=== PATIENT | male | born 1955 | race Caucasian/White ===

== ENCOUNTER → 2017-03-04 | Outpatient (CLI) | payer MEDICARE, MEDICAID ==
[~2017-03-04] MED LIST: ALFU10TA2 PO; IMIT100T PO; NEUR300C PO; OMEP40CA2 PO
--- NOTE | 2017-03-04 09:05 | REP ---
TWO VIEW CHEST: COMPARISON: 12/23/2015. Once again there are mild chronic fibrotic changes in the lung bases and mild hyperinflation. There is no acute infiltrate. The heart is normal in size. Mediastinal silhouette is unremarkable and unchanged. There are minor degenerative changes of the spine. IMPRESSION: Stable exam with no evidence of acute pulmonary disease. Signed by Giacomo Tavares MD 03/04/2017 09:41 A
[2017-03-04 09:54] LABS: BASO # 0.1 K/mm3 (0.0-0.2); BASO % 1.2 % (0.0-1.0); EOS # 0.3 K/mm3 (0.0-0.50); EOS % 4.4 % (0.0-3.0); LYMPH # 1.4 K/mm3 (1.5-4.5); LYMPH % 19.7 % (24.0-44.0); MEAN CORPUSCULAR HEMOGLOBIN 31.5 pg (27.0-33.0); MEAN CORPUSCULAR HGB CONC 32.8 g/dl (32.0-36.5); MEAN CORPUSCULAR VOLUME 96.2 fl (80.0-96.0); MONO # 0.5 K/mm3 (0.0-0.8); MONO % 6.7 % (0.0-5.0); NEUTROPHILS # 4.4 K/mm3 (1.8-7.7); NEUTROPHILS % 66.6 % (36.0-66.0); RED CELL DISTRIBUTION WIDTH 12.8 % (11.5-14.5); WHITE BLOOD COUNT 6.7 K/mm3 (4.0-10.0)
[2017-03-04 10:14] LABS: ALBUMIN/GLOBULIN RATIO 1.54 (1.00-1.93); ALKALINE PHOSPHATASE 75 U/L (45-117); ALT/SGPT 19 U/L (12-78); ANION GAP 3 MEQ/L (8-16); AST/SGOT 16 U/L (15-37); BLOOD UREA NITROGEN 11 MG/DL (7-18); CALCIUM LEVEL 9.1 MG/DL (8.5-10.1); CARBON DIOXIDE LEVEL 31 MEQ/L (21-32); CHLORIDE LEVEL 108 MEQ/L (98-107); CHOLESTEROL LEVEL 149 MG/DL (<200); CREATININE FOR GFR 1.03 MG/DL (0.70-1.30); GLOMERULAR FILTRATION RATE > 60.0 (>56); GLUCOSE, FASTING 108 MG/DL (70-105); POTASSIUM SERUM 4.4 MEQ/L (3.5-5.1); SODIUM LEVEL 142 MEQ/L (136-145); TOTAL PROTEIN 6.6 GM/DL (6.4-8.2); TRIGLYCERIDES LEVEL 47 MG/DL (<150)
== END ==
LOC: M WUC 08:30
PROVIDERS: ATTEND Physician Assistant Medical
DX: J44.9 Chronic obstructive pulmonary disease, unspecified (principal); E78.2 Mixed hyperlipidemia; E55.9 Vitamin D deficiency, unspecified

== ENCOUNTER 2017-06-14 20:34 | Emergency (ER) | payer MEDICARE, MEDICAID ==
[~2017-06-14] VITALS: Ht 180.3 cm; Wt 62.0 kg
[2017-06-14 20:45] VITALS: BP 167/81
[2017-06-14] MEDS ORDERED: ALBU17IN (20:49)
[2017-06-14] MEDS ORDERED: BREO1INH (20:49)
[2017-06-14] MEDS ORDERED: NAPR500T3 PO (22:33)
[2017-06-14] MEDS ORDERED: TYLE325T5 PO (22:33)
[2017-06-14] MEDS: KETOROLAC 60 MG/2 ML VIAL (J1885) IM ONE (22:38)
--- NOTE | 2017-06-15 07:24 | REP ---
Left wrist four views : There is no fracture or dislocation. Mineralization and joint spaces are normal. There are no calcifications or foreign bodies. Impression: Negative left wrist . Signed by Giacomo Vasquez MD 06/15/2017 07:16 A
== END 2017-06-14 22:53 | disposition home or self-care (01) ==
LOC: M ED 20:34
DX: S63.501A Unspecified sprain of right wrist, initial encounter (principal); X50.0XXA Overexertion from strenuous movement or load, initial encounter; Y92.9 Unspecified place or not applicable; Y93.89 Activity, other specified; Y99.8 Other external cause status; J44.9 Chronic obstructive pulmonary disease, unspecified; K21.9 Gastro-esophageal reflux disease without esophagitis; R51 Headache; Z90.5 Acquired absence of kidney; Z79.51 Long term (current) use of inhaled steroids; Z79.899 Other long term (current) drug therapy; Z91.040 Latex allergy status
CPT/HCPCS: 73110; 96372; 99283; J1885

== ENCOUNTER → 2017-08-05 | Outpatient (CLI) | payer MEDICARE, MEDICAID ==
[~2017-08-05] MED LIST changes: +ALBU17IN; +BREO1INH; +NAPR500T3 PO; +TYLE325T5 PO
[2017-08-05 12:54] LABS: BASO # 0.1 K/mm3 (0.0-0.2); BASO % 1.1 % (0.0-1.0); EOS # 0.3 K/mm3 (0.0-0.50); LYMPH # 1.6 K/mm3 (1.5-4.5); LYMPH % 25.3 % (24.0-44.0); MEAN CORPUSCULAR HEMOGLOBIN 32.6 pg (27.0-33.0); MEAN CORPUSCULAR HGB CONC 33.6 g/dl (32.0-36.5); MONO # 0.3 K/mm3 (0.0-0.8); MONO % 5.5 % (0.0-5.0); NEUTROPHILS # 3.8 K/mm3 (1.8-7.7); NEUTROPHILS % 61.1 % (36.0-66.0); RED CELL DISTRIBUTION WIDTH 12.7 % (11.5-14.5); WHITE BLOOD COUNT 6.2 K/mm3 (4.0-10.0)
[2017-08-05 13:02] LABS: ALBUMIN 4.1 GM/DL (3.2-5.2); ALBUMIN/GLOBULIN RATIO 1.37 (1.00-1.93); ALKALINE PHOSPHATASE 70 U/L (45-117); ALT/SGPT 20 U/L (12-78); ANION GAP 5 MEQ/L (8-16); AST/SGOT 17 U/L (15-37); BILIRUBIN,TOTAL 0.8 MG/DL (0.2-1.0); BLOOD UREA NITROGEN 15 MG/DL (7-18); CALCIUM LEVEL 9.3 MG/DL (8.5-10.1); CARBON DIOXIDE LEVEL 32 MEQ/L (21-32); CHLORIDE LEVEL 107 MEQ/L (98-107); CHOLESTEROL LEVEL 162 MG/DL (<200); CREATININE FOR GFR 1.14 MG/DL (0.70-1.30); GLOMERULAR FILTRATION RATE > 60.0 (>56); GLUCOSE, FASTING 105 MG/DL (70-105); POTASSIUM SERUM 4.4 MEQ/L (3.5-5.1); SODIUM LEVEL 144 MEQ/L (136-145); TOTAL PROTEIN 7.1 GM/DL (6.4-8.2); TRIGLYCERIDES LEVEL 53 MG/DL (<150)
== END ==
LOC: M WUC 08:53
PROVIDERS: ATTEND Physician Assistant Medical
DX: E78.2 Mixed hyperlipidemia (principal); E55.9 Vitamin D deficiency, unspecified

== ENCOUNTER → 2017-09-10 | Outpatient (REF) | payer MEDICARE, MEDICAID | LOC: M SMT 13:00 | PROVIDERS: ATTEND Nurse Practitioner Women's Health | DX: N40.1 Benign prostatic hyperplasia with lower urinary tract symptoms (principal) ==

== ENCOUNTER → 2017-11-19 | Outpatient (CLI) | payer MEDICARE, MEDICAID ==
[2017-11-19 14:16] LABS: ANION GAP 4 MEQ/L (8-16); BLOOD UREA NITROGEN 14 MG/DL (7-18); CALCIUM LEVEL 8.9 MG/DL (8.8-10.2); CARBON DIOXIDE LEVEL 32 MEQ/L (21-32); CHLORIDE LEVEL 109 MEQ/L (98-107); CREATININE FOR GFR 1.09 MG/DL (0.70-1.30); GLOMERULAR FILTRATION RATE > 60.0 (>49); GLUCOSE, FASTING 112 MG/DL (80-110); POTASSIUM SERUM 4.3 MEQ/L (3.5-5.1); SODIUM LEVEL 145 MEQ/L (136-145)
== END ==
LOC: M SMT 09:31
PROVIDERS: ATTEND Nurse Practitioner Women's Health
DX: Z08 Encounter for follow-up examination after completed treatment for malignant neoplasm (principal); Z85.828 Personal history of other malignant neoplasm of skin

== ENCOUNTER → 2017-11-26 | Outpatient (CLI) | payer MEDICARE, MEDICAID ==
[~2017-11-26] MED LIST changes: +ISOVUE-370 76% 100ML VIAL (Q9967) As Ordered ONE
--- NOTE | 2017-11-26 10:40 | REP ---
Clinical: History of renal cell carcinoma for followup. Comparison: 07/12/2016. Technique: Axial precontrast, contrast enhanced, and delayed images of the abdomen and pelvis using 100 ml Isovue 370 intravenous contrast material with coronal and sagittal re-formations. Findings: Liver demonstrates few scattered stable hypodensities compatible with cysts measuring up to 10 mm diameter as well as stable hemangioma along the left lateral tip of the liver measuring approximately 2.5 cm diameter. Spleen, gallbladder, bilateral adrenal glands are normal. The left kidney demonstrates compensatory enlargement along with stable simple cysts measuring up to 4.9 cm diameter and few nonobstructing renal calculi measuring up to 9 mm. The patient is status post right nephrectomy without recurrence or mass lesion in the right renal fossa. Evidence for chronic pancreatitis with scattered parenchymal calcifications through the body/head/uncinate process. The enteric system is without obstruction or acute inflammatory process. Evaluation of the pelvis demonstrates normal bladder and enlarged prostate gland. No ascites. No obvious adenopathy. Atherosclerotic changes of the aorta and vasculature noted. Musculoskeletal structures demonstrate age-related changes without focal osseous abnormality. Lung bases are clear. Impression: 1. No acute abdominopelvic pathology appreciated. Specifically, with relation to the prior renal cell carcinoma, no recurrence, adenopathy or metastatic disease is appreciated. 2. Chronic stable findings include hepatic cysts and hemangioma as well as left renal cysts and nonobstructing calculi. Sequelae of chronic pancreatitis again noted. 3. Enlarged prostate gland. Signed by Connor Branch MD 11/26/2017 10:31 A
== END ==
LOC: M RAD 09:54
PROVIDERS: ATTEND Nurse Practitioner Women's Health
DX: Z08 Encounter for follow-up examination after completed treatment for malignant neoplasm (principal); Z85.528 Personal history of other malignant neoplasm of kidney; N28.1 Cyst of kidney, acquired
CPT/HCPCS: 74178; Q9967

== ENCOUNTER → 2017-12-03 | Outpatient (REF) | payer MEDICARE, MEDICAID ==
[2017-12-03 20:23] LABS: APPEARANCE, URINE CLEAR (CLEAR); BACTERIA, URINE AUTO NEGATIVE (NEGATIVE); BILIRUBIN, URINE AUTO NEGATIVE (NEGATIVE); BLOOD, URINE BLOOD 2+ (NEGATIVE); COLOR, URINE YELLOW (YELLOW); GLUCOSE, URINE (UA) AUTO NEGATIVE (NEGATIVE); KETONE, URINE AUTO NEGATIVE (NEGATIVE); LEUKOCYTE ESTERASE, URINE AUTO NEGATIVE (NEGATIVE); NITRITE, URINE AUTO NEGATIVE (NEGATIVE); PROTEIN, URINE AUTO NEGATIVE (NEGATIVE); RBC, URINE AUTO TNTC /HPF (0-3); SPECIFIC GRAVITY URINE AUTO 1.017 (1.002-1.035); SQUAMOUS EPITHELIAL CELL UR AU 0 /HPF (0-6); WBC, URINE AUTO 1 /HPF (0-3)
== END ==
LOC: M SMT 17:11
DX: R31.29 Other microscopic hematuria (principal); Z12.5 Encounter for screening for malignant neoplasm of prostate
CPT/HCPCS: 81001

== ENCOUNTER → 2017-12-10 | Outpatient (CLI) | payer MEDICARE, MEDICAID | LOC: M WUC 10:22 | DX: Z12.5 Encounter for screening for malignant neoplasm of prostate (principal) | CPT/HCPCS: G0103 ==

== ENCOUNTER → 2017-12-22 | Outpatient (CLI) | payer MEDICARE, MEDICAID ==
[2017-12-22 12:09] LABS: HEMATOCRIT 43.2 % (42.0-52.0); HEMOGLOBIN 14.1 g/dl (14.0-18.0); MEAN CORPUSCULAR HEMOGLOBIN 31.8 pg (27.0-33.0); MEAN CORPUSCULAR HGB CONC 32.6 g/dl (32.0-36.5); MEAN CORPUSCULAR VOLUME 97.5 fl (80.0-96.0); PLATELET COUNT, AUTOMATED 205 10^3/uL (150-450); RED BLOOD COUNT 4.43 10^6/uL (4.30-6.10); RED CELL DISTRIBUTION WIDTH 13.2 % (11.5-14.5); WHITE BLOOD COUNT 7.1 10^3/uL (4.0-10.0)
[2017-12-22 12:21] LABS: INR 1.07
[2017-12-22 12:22] LABS: PARTIAL THROMBOPLASTIN TIME 37.8 SECONDS (26.8-37.9)
[2017-12-22 12:31] LABS: ANION GAP 1 MEQ/L (8-16); BLOOD UREA NITROGEN 18 MG/DL (7-18); CALCIUM LEVEL 8.7 MG/DL (8.8-10.2); CARBON DIOXIDE LEVEL 31 MEQ/L (21-32); CHLORIDE LEVEL 111 MEQ/L (98-107); CREATININE FOR GFR 0.99 MG/DL (0.70-1.30); GLOMERULAR FILTRATION RATE > 60.0 (>49); GLUCOSE, FASTING 91 MG/DL (70-100); POTASSIUM SERUM 4.7 MEQ/L (3.5-5.1); SODIUM LEVEL 143 MEQ/L (136-145)
== END ==
LOC: M LAB 11:24
DX: Z01.818 Encounter for other preprocedural examination (principal); R00.1 Bradycardia, unspecified; I44.0 Atrioventricular block, first degree; R31.29 Other microscopic hematuria
CPT/HCPCS: 71046

== ENCOUNTER 2017-12-23 10:05 | Day surgery (SDC) | payer MEDICARE, MEDICAID ==
[2017-12-23] MEDS: LR 1,000 ML IV (10:41)
[2017-12-23] MEDS ORDERED: PROPOFOL 200 MG/20 ML VIAL As Ordered ×2 (11:34)
[2017-12-23] MEDS ORDERED: fentaNYL 100 MCG/2 ML INJECTION (J3010) As Ordered ×2 (11:34→11:39)
[2017-12-23] MEDS ORDERED: ONDANSETRON 4MG/2ML VIAL (J2405) As Ordered (11:34)
[2017-12-23] MEDS ORDERED: MIDAZOLAM INJ 2 MG/2 ML VIAL (J2250) As Ordered (11:34)
[2017-12-23] MEDS ORDERED: LIDOCAINE 2% INJ 100 MG/5 ML SDV (FOR ANES.) As Ordered (11:34)
[2017-12-23] MEDS: LIDOCAINE 2% 5ML JELLY UROJET As Ordered (11:35)
[2017-12-23] MEDS: CONRAY-60 60% 50ML VIAL (Q9961) As Ordered (11:38)
[2017-12-23] MEDS ORDERED: fentaNYL 100 MCG/2 ML INJECTION (J3010) IV (12:30)
[2017-12-23] MEDS ORDERED: NORCO, ANEXSIA 5/325MG TABLET (HYDROcodone/ACETAMINOPHEN) PO (12:30)
[2017-12-23] MEDS ORDERED: LR 1,000 ML IV (12:30)
[2017-12-23] MEDS ORDERED: ONDANSETRON 4MG/2ML VIAL (J2405) IV (12:30)
== END 2017-12-23 13:20 | disposition home or self-care (01) ==
LOC: M SDC 10:05
DX: R31.29 Other microscopic hematuria (principal); F41.9 Anxiety disorder, unspecified; F32.9 Major depressive disorder, single episode, unspecified; N20.0 Calculus of kidney; N40.1 Benign prostatic hyperplasia with lower urinary tract symptoms; E55.9 Vitamin D deficiency, unspecified; D64.9 Anemia, unspecified; M54.9 Dorsalgia, unspecified; J44.9 Chronic obstructive pulmonary disease, unspecified; Z91.040 Latex allergy status; Z79.899 Other long term (current) drug therapy; Z85.528 Personal history of other malignant neoplasm of kidney; Z72.0 Tobacco use
CPT/HCPCS: 52005

== ENCOUNTER → 2018-06-01 | Outpatient (CLI) | payer MEDICARE, MEDICAID | LOC: M RAD 06:49 | DX: K86.2 Cyst of pancreas (principal); N28.1 Cyst of kidney, acquired | CPT/HCPCS: 76700 ==

== ENCOUNTER → 2018-06-05 | Outpatient (CLI) | payer MEDICARE, MEDICAID | LOC: M RAD 07:52 | DX: F17.210 Nicotine dependence, cigarettes, uncomplicated (principal) | CPT/HCPCS: G0297 ==

== ENCOUNTER → 2018-06-23 | Outpatient (CLI) | payer MEDICARE, MEDICAID ==
[2018-06-23 10:54] LABS: BASO # 0.1 10^3/uL (0.0-0.2); BASO % 1.4 % (0.0-1.0); EOS % 0.4 % (0.0-3.0); HEMATOCRIT 41.3 % (42.0-52.0); HEMOGLOBIN 13.9 g/dl (13.5-17.5); IMMATURE GRANULOCYTE % 0.1 % (0-3.0); LYMPH # 1.7 10^3/uL (1.5-4.5); LYMPH % 24.3 % (24.0-44.0); MEAN CORPUSCULAR HEMOGLOBIN 32.4 pg (27.0-33.0); MEAN CORPUSCULAR HGB CONC 33.7 g/dl (32.0-36.5); MEAN CORPUSCULAR VOLUME 96.3 fl (80.0-96.0); MONO # 0.5 10^3/uL (0.0-0.8); MONO % 7.5 % (0.0-5.0); NEUTROPHILS # 4.7 10^3/uL (1.8-7.7); NEUTROPHILS % 66.3 % (36.0-66.0); PLATELET COUNT, AUTOMATED 214 10^3/uL (150-450); RED BLOOD COUNT 4.29 10^6/uL (4.30-6.10); RED CELL DISTRIBUTION WIDTH 12.9 % (11.5-14.5); WHITE BLOOD COUNT 7.2 10^3/uL (4.0-10.0)
[2018-06-23 11:26] LABS: TOTAL 25(OH) VITAMIN D 41.1 NG/ML (30.0-100.0)
[2018-06-23 11:28] LABS: ALBUMIN 3.6 GM/DL (3.2-5.2); ALBUMIN/GLOBULIN RATIO 1.38 (1.00-1.93); ALKALINE PHOSPHATASE 51 U/L (45-117); ALT/SGPT 19 U/L (12-78); ANION GAP 5 MEQ/L (8-16); AST/SGOT 14 U/L (7-37); BILIRUBIN,TOTAL 0.7 MG/DL (0.2-1.0); BLOOD UREA NITROGEN 12 MG/DL (7-18); CALCIUM LEVEL 8.5 MG/DL (8.8-10.2); CARBON DIOXIDE LEVEL 30 MEQ/L (21-32); CHLORIDE LEVEL 108 MEQ/L (98-107); CHOLESTEROL LEVEL 148 MG/DL (<200); CHOLESTEROL RISK RATIO 3.363 (<5); CREATININE FOR GFR 0.91 MG/DL (0.70-1.30); GLOMERULAR FILTRATION RATE > 60.0 (>49); GLUCOSE, FASTING 93 MG/DL (70-100); HDL CHOLESTEROL 44 MG/DL (>40); LDL CHOLESTEROL 86.2 MG/DL (<100); NON-HDL-C 104 MG/DL; POTASSIUM SERUM 4.4 MEQ/L (3.5-5.1); SODIUM LEVEL 143 MEQ/L (136-145); TOTAL PROTEIN 6.2 GM/DL (6.4-8.2); TRIGLYCERIDES LEVEL 89 MG/DL (<150)
== END ==
LOC: M WUC 09:10
DX: E55.9 Vitamin D deficiency, unspecified (principal); F32.9 Major depressive disorder, single episode, unspecified; Z13.220 Encounter for screening for lipoid disorders
CPT/HCPCS: 84443

== ENCOUNTER → 2018-12-08 | Outpatient (REF) | payer MEDICARE, MEDICAID ==
[~2018-12-08] MED LIST changes: -ISOVUE-370 76% 100ML VIAL (Q9967) As Ordered ONE; +NAPR-885 PO; -NAPR500T3 PO; +VITA100054 PO
[2018-12-08 10:23] LABS: HEMATOCRIT 42.8 % (42.0-52.0); HEMOGLOBIN 14.3 g/dl (13.5-17.5); MEAN CORPUSCULAR HEMOGLOBIN 31.6 pg (27.0-33.0); MEAN CORPUSCULAR HGB CONC 33.4 g/dl (32.0-36.5); MEAN CORPUSCULAR VOLUME 94.5 fl (80.0-96.0); PLATELET COUNT, AUTOMATED 255 10^3/uL (150-450); RED BLOOD COUNT 4.53 10^6/uL (4.30-6.10); WHITE BLOOD COUNT 7.9 10^3/uL (4.0-10.0)
[2018-12-08 10:50] LABS: ALBUMIN 3.8 GM/DL (3.2-5.2); ALT/SGPT 19 U/L (12-78); BILIRUBIN,TOTAL 0.7 MG/DL (0.2-1.0); BLOOD UREA NITROGEN 18 MG/DL (7-18); CALCIUM LEVEL 9.2 MG/DL (8.8-10.2); CARBON DIOXIDE LEVEL 28 MEQ/L (21-32); CHLORIDE LEVEL 109 MEQ/L (98-107); CHOLESTEROL LEVEL 171 MG/DL (<200); CHOLESTEROL RISK RATIO 3.886 (<5); CREATININE FOR GFR 0.85 MG/DL (0.70-1.30); GLOMERULAR FILTRATION RATE > 60.0 (>49); GLUCOSE, FASTING 96 MG/DL (70-100); HDL CHOLESTEROL 44 MG/DL (>40); LDL CHOLESTEROL 112 MG/DL (<100); NON-HDL-C 127 MG/DL; POTASSIUM SERUM 4.5 MEQ/L (3.5-5.1); SODIUM LEVEL 141 MEQ/L (136-145); TOTAL PROTEIN 6.5 GM/DL (6.4-8.2); TRIGLYCERIDES LEVEL 74 MG/DL (<150)
[2018-12-08 11:17] LABS: FERRITIN 44 NG/ML (26-388); IRON (FE) 112 UG/DL (65-175); PERCENT SATURATION 42.1 % (19.7-50.0); TOTAL IRON BINDING CAPACITY 266 UG/DL (250-450)
[2018-12-08 11:24] LABS: FOLATE 15.9 NG/ML; VITAMIN B12 LEVEL 548 PG/ML
== END ==
LOC: M SFHCPLAZ 09:20
PROVIDERS: ATTEND Physician Assistant
DX: E78.5 Hyperlipidemia, unspecified (principal); D53.9 Nutritional anemia, unspecified; N18.3 Chronic kidney disease, stage 3 (moderate); E55.9 Vitamin D deficiency, unspecified; F41.9 Anxiety disorder, unspecified; F32.9 Major depressive disorder, single episode, unspecified; Z85.528 Personal history of other malignant neoplasm of kidney
CPT/HCPCS: 36415; 80053; 80061; 82607; 82728; 82746; 83550; 85027; 85046; G0463

== ENCOUNTER → 2018-12-09 | Outpatient (CLI) | payer MEDICARE, MEDICAID ==
--- NOTE | 2018-12-09 16:16 | REP ---
RIGHT SHOULDER, THREE VIEWS: HISTORY: Acute pain. There is no acute fracture or dislocation. There is moderate narrowing of the glenohumeral joint space and marked narrowing of the acromioclavicular joint space. IMPRESSION: Degenerative change as described above. Electronically Signed by Gonzales Anne MD 12/09/2018 04:18 P
== END ==
LOC: M SMT 15:21
PROVIDERS: ATTEND Physician Assistant
DX: M19.011 Primary osteoarthritis, right shoulder (principal)

== ENCOUNTER → 2019-06-09 | Outpatient (REF) | payer MEDICARE, MEDICAID ==
[2019-06-09 15:55] LABS: HEMATOCRIT 40.8 % (42.0-52.0); HEMOGLOBIN 13.5 g/dl (13.5-17.5); MEAN CORPUSCULAR HEMOGLOBIN 32.8 pg (27.0-33.0); MEAN CORPUSCULAR HGB CONC 33.1 g/dl (32.0-36.5); MEAN CORPUSCULAR VOLUME 99.3 fl (80.0-96.0); PLATELET COUNT, AUTOMATED 192 10^3/uL (150-450); RED BLOOD COUNT 4.11 10^6/uL (4.30-6.10); WHITE BLOOD COUNT 7.8 10^3/uL (4.0-10.0)
[2019-06-09 16:18] LABS: ALBUMIN 3.7 GM/DL (3.2-5.2); ALT/SGPT 20 U/L (12-78); AMYLASE 57 U/L (25-115); BILIRUBIN,TOTAL 1.1 MG/DL (0.2-1.0); BLOOD UREA NITROGEN 17 MG/DL (7-18); CALCIUM LEVEL 9.4 MG/DL (8.8-10.2); CARBON DIOXIDE LEVEL 30 MEQ/L (21-32); CHLORIDE LEVEL 110 MEQ/L (98-107); CHOLESTEROL LEVEL 159 MG/DL (<200); CHOLESTEROL RISK RATIO 3.117 (<5); CREATININE FOR GFR 1.17 MG/DL (0.70-1.30); GLOMERULAR FILTRATION RATE > 60.0 (>49); GLUCOSE, FASTING 100 MG/DL (70-100); HDL CHOLESTEROL 51 MG/DL (>40); IRON (FE) 145 UG/DL (65-175); LDL CHOLESTEROL 90 MG/DL (<100); LIPASE 156 U/L (73-393); NON-HDL-C 108 MG/DL; POTASSIUM SERUM 4.2 MEQ/L (3.5-5.1); SODIUM LEVEL 145 MEQ/L (136-145); TOTAL IRON BINDING CAPACITY 250 UG/DL (250-450); TOTAL PROTEIN 6.6 GM/DL (6.4-8.2); TRIGLYCERIDES LEVEL 92 MG/DL (<150)
[2019-06-09 16:26] LABS: TOTAL 25(OH) VITAMIN D 26.1 NG/ML (30.0-100.0)
[2019-06-09 16:28] LABS: FOLATE 7.3 NG/ML (>5.4); VITAMIN B12 LEVEL 425 PG/ML (247-911)
[2019-06-11 14:09] LABS: IgG P18 AB Absent (.); IgG P23 AB Absent (.); IgG P28 AB Absent (.); IgG P30 AB Absent (.); IgG P39 AB Absent (.); IgG P41 AB Absent (.); IgG P45 AB Absent (.); IgG P66 AB Absent (.); IgG P93 AB Absent (.); IgM P23 AB Absent (.); IgM P39 AB Present (.); IgM P41 AB Absent (.); LYME IgG WB INTERPRETATION Negative (.); LYME IgM WB INTERPRETATION Negative (.)
== END ==
LOC: M SFHCPLAZ 14:33
PROVIDERS: ATTEND Nurse Practitioner Adult Health
DX: D53.9 Nutritional anemia, unspecified (principal); E78.5 Hyperlipidemia, unspecified; E55.9 Vitamin D deficiency, unspecified; K86.1 Other chronic pancreatitis; W57.XXXD Bitten or stung by nonvenomous insect and other nonvenomous arthropods, subsequent encounter
CPT/HCPCS: 36415; 80053; 80061; 82150; 82306; 82607; 82746; 83550; 83690; 85027; 86617; G0463

== ENCOUNTER → 2019-06-23 | Outpatient (REF) | payer MEDICARE, MEDICAID ==
[~2019-06-23] MED LIST changes: -ALFU10TA2 PO; +ALFU10TA3 PO; +ATOR1TAB19 PO; +DRIS50003 PO; +FINA5TAB2 PO; -OMEP40CA2 PO; +OMEP40CA97 PO
[2019-06-23 19:00] LABS: APPEARANCE, URINE CLEAR (CLEAR); BACTERIA, URINE AUTO NEGATIVE (NEGATIVE); BILIRUBIN, URINE AUTO NEGATIVE (NEGATIVE); BLOOD, URINE BLOOD 3+ (NEGATIVE); COLOR, URINE YELLOW (YELLOW); GLUCOSE, URINE (UA) AUTO NEGATIVE (NEGATIVE); KETONE, URINE AUTO NEGATIVE (NEGATIVE); LEUKOCYTE ESTERASE, URINE AUTO NEGATIVE (NEGATIVE); MUCUS, URINE SMALL (NEGATIVE); NITRITE, URINE AUTO NEGATIVE (NEGATIVE); PROTEIN, URINE AUTO NEGATIVE (NEGATIVE); RBC, URINE AUTO 111 /HPF (0-3); SPECIFIC GRAVITY URINE AUTO 1.018 (1.002-1.035); SQUAMOUS EPITHELIAL CELL UR AU 0 /HPF (0-6); UROBILINOGEN, URINE AUTO 0.2 mg/dL (0.0-2.0); WBC, URINE AUTO 3 /HPF (0-3)
== END ==
LOC: M SMT 17:02
PROVIDERS: ATTEND Nurse Practitioner Women's Health
DX: R31.29 Other microscopic hematuria (principal)
CPT/HCPCS: 81001; 87086; 88108; G0463

== ENCOUNTER → 2019-06-28 | Outpatient (CLI) | payer MEDICARE, MEDICAID ==
[~2019-06-28] MED LIST changes: +ALFU10TA2 PO; -ALFU10TA3 PO; -ATOR1TAB19 PO; -DRIS50003 PO; -FINA5TAB2 PO; +OMEP40CA2 PO; -OMEP40CA97 PO
== END ==
LOC: M WUC 15:57
PROVIDERS: ATTEND Nurse Practitioner Women's Health
DX: Z12.5 Encounter for screening for malignant neoplasm of prostate (principal)
CPT/HCPCS: 36415; G0103

== ENCOUNTER → 2019-06-30 | Outpatient (CLI) | payer MEDICARE, MEDICAID ==
[~2019-06-30] MED LIST changes: +ISOVUE-370 76% 100ML VIAL (Q9967) As Ordered ONE
--- NOTE | 2019-06-30 10:46 | REP ---
Clinical: Microhematuria. History of renal neoplasm. Technique: Axial precontrast, contrast enhanced, and delayed images of the abdomen and pelvis using 100 ml Isovue 370 intravenous contrast material. Comparison: 11/26/2017. Findings: The patient is known to be status post right nephrectomy. Compensatory enlargement of the left kidney is noted which demonstrates multiple nonobstructing calculi measuring up to 8 mm as well as few simple cysts measuring up to 4.7 cm diameter. No hydroureteronephrosis, perinephric stranding or obstructing ureteral calculi are appreciated. Liver includes benign appearing sub centimeter cysts and stable hemangioma. Spleen, gallbladder, and bilateral adrenal glands are normal. Evidence for chronic pancreatitis noted with parenchymal calcifications scattered throughout the pancreas. The enteric system is without obstruction or obvious acute inflammatory process. Pelvis demonstrates normal bladder and age appropriate prostate/seminal vesicles. No ascites. No free air. No obvious adenopathy. Abdominal aorta demonstrates atherosclerotic changes without aneurysm or dissection. Musculoskeletal structures without focal osseous abnormality. Lung bases are clear. Impression: 1. Right nephrectomy. Compensatory enlargement to the left kidney with multiple nonobstructing calculi up to 8 mm and few cysts up to 4.7 cm. No further enteric pathology appreciated. Electronically Signed by Connor Branch MD 06/30/2019 10:37 A
== END ==
LOC: M RAD 09:34
PROVIDERS: ATTEND Nurse Practitioner Women's Health
DX: Z85.528 Personal history of other malignant neoplasm of kidney (principal); R31.29 Other microscopic hematuria; N20.0 Calculus of kidney; N28.1 Cyst of kidney, acquired; N28.81 Hypertrophy of kidney
CPT/HCPCS: 74178; Q9967

== ENCOUNTER → 2019-08-04 | Outpatient (CLI) | payer MEDICARE, MEDICAID ==
[~2019-08-04] MED LIST changes: +ATOR1TAB19 PO; +DRIS50003 PO; +FINA5TAB2 PO; -ISOVUE-370 76% 100ML VIAL (Q9967) As Ordered ONE
--- NOTE | 2019-08-04 09:40 | REP ---
Clinical: Preoperative assessment . Comparison: 12/22/2017 . Technique: PA and lateral. Findings: The mediastinum and cardiac silhouette are normal. The lung rivera are clear and without acute consolidation, effusion, or pneumothorax. The skeletal structures are intact and normal. Impression: 1. No acute cardiopulmonary process. Electronically Signed by Connor Branch MD 08/04/2019 09:31 A
[2019-08-04 13:52] LABS: HEMATOCRIT 42.4 % (42.0-52.0); HEMOGLOBIN 14.1 g/dl (13.5-17.5); MEAN CORPUSCULAR HEMOGLOBIN 32.9 pg (27.0-33.0); MEAN CORPUSCULAR HGB CONC 33.3 g/dl (32.0-36.5); MEAN CORPUSCULAR VOLUME 98.8 fl (80.0-96.0); PLATELET COUNT, AUTOMATED 219 10^3/uL (150-450); RED BLOOD COUNT 4.29 10^6/uL (4.30-6.10); WHITE BLOOD COUNT 7.8 10^3/uL (4.0-10.0)
[2019-08-04 14:01] LABS: BLOOD UREA NITROGEN 18 MG/DL (7-18); CALCIUM LEVEL 9.5 MG/DL (8.8-10.2); CARBON DIOXIDE LEVEL 30 MEQ/L (21-32); CHLORIDE LEVEL 109 MEQ/L (98-107); CREATININE FOR GFR 0.99 MG/DL (0.70-1.30); GLOMERULAR FILTRATION RATE > 60.0 (>49); GLUCOSE, FASTING 92 MG/DL (70-100); POTASSIUM SERUM 4.6 MEQ/L (3.5-5.1); SODIUM LEVEL 142 MEQ/L (136-145)
[2019-08-04 14:10] LABS: INR 1.05; PROTHROMBIN TIME 13.4 SECONDS (11.8-14.0)
[2019-08-04 14:11] LABS: PARTIAL THROMBOPLASTIN TIME 43.7 SECONDS (25.0-38.4)
== END ==
LOC: M SMT 08:58
PROVIDERS: ATTEND Urology
DX: Z01.818 Encounter for other preprocedural examination (principal); N20.0 Calculus of kidney; N39.0 Urinary tract infection, site not specified

== ENCOUNTER → 2019-08-06 | Outpatient (CLI) | payer MEDICARE, MEDICAID ==
[2019-08-06 17:13] LABS: ALBUMIN 3.9 GM/DL (3.2-5.2); PREALBUMIN 20.4 MG/DL (20.0-40.0)
== END ==
LOC: M WUC 13:32
PROVIDERS: ATTEND Family Medicine
DX: E46 Unspecified protein-calorie malnutrition (principal)

== ENCOUNTER 2019-08-12 12:48 | Day surgery (SDC) | payer MEDICARE, MEDICAID ==
[~2019-08-12] VITALS: Ht 177.8 cm; Wt 56.7 kg
[2019-08-12] MEDS: ceFAZolin SOD 2 GM in IV 1 EA IV ONE ×2 (07:31→17:50)
[~2019-08-12 12:48] MED LIST changes: +LIDOCAINE 1% MDV 20ML VIAL SQ PRN; +LR 1,000 ML IV ONE; -OMEP40CA2 PO; +OMEP40CA97 PO
[2019-08-12] MEDS ORDERED: ONDANSETRON 4MG/2ML VIAL (J2405) As Ordered ONE (14:04)
[2019-08-12] MEDS ORDERED: dexameTHASONE 4 MG/ML 1ML VIAL (J1100) As Ordered ONE (14:04)
[2019-08-12] MEDS ORDERED: PROPOFOL 200 MG/20 ML VIAL As Ordered ONE (14:05)
[2019-08-12] MEDS ORDERED: LIDOCAINE 2% INJ 100 MG/5 ML SDV (FOR ANES.) As Ordered ONE (14:05)
[2019-08-12] MEDS ORDERED: fentaNYL 100 MCG/2 ML INJECTION (J3010) As Ordered ONE ×2 (14:16→18:37)
[2019-08-12] MEDS ORDERED: MIDAZOLAM INJ 2 MG/2 ML VIAL (J2250) As Ordered ONE (14:16)
[2019-08-12] MEDS ORDERED: CONRAY-60 60% 50ML VIAL (Q9961) As Ordered ONE (16:26)
[2019-08-12] MEDS ORDERED: MEPERIDINE INJ 25 MG/ML VIAL (J2175) IV PRN (19:30)
[2019-08-12] MEDS ORDERED: fentaNYL 100 MCG/2 ML INJECTION (J3010) IV PRN (19:30)
[2019-08-12] MEDS ORDERED: METOCLOPRAMIDE INJ 10MG/2ML VIAL (J2765) IV PRN (19:30)
[2019-08-12] MEDS ORDERED: ONDANSETRON 4MG/2ML VIAL (J2405) IV PRN (19:30)
[2019-08-12] MEDS ORDERED: LR 1,000 ML IV SCH (19:30)
[2019-08-12] MEDS ORDERED: PERCOCET 5MG/325MG TAB PO PRN ×2 (19:30)
--- NOTE | 2019-08-12 19:39 | REP ---
Retrograde pyelogram: Four views. History: Left ureteral stent placement. Cystoscopy. 14 seconds of fluoroscopy time is reported. Findings: A sequence of four last image hold fluoroscopically obtained spot radiographs document ureteral cannulation, contrast injection, and double pigtail ureteral stent placement. No laterality markers are visible. Electronically Signed by Baudilio Pacheco MD 08/13/2019 09:15 A
[2019-08-12 20:30] VITALS: BP 158/76
--- NOTE | 2019-08-13 15:52 | RO ---
DATE OF PROCEDURE: 08/12/2019 PREPROCEDURE DIAGNOSIS: Left kidney stones. POSTPROCEDURE DIAGNOSIS: Left kidney stones. PROCEDURE: Cystoscopy, left ureteroscopy with laser lithotripsy and basket extraction of stones, left retrograde pyelogram with intraoperative interpretation of images, left ureteral stent placement. SURGEON: Magnus Amaya MD NETWORK ANNOUNCER: None. ANESTHESIA: General. OPERATIVE INDICATIONS: This is a 63-year-old male who on CT scan was found to have what appeared to be several nonobstructing left-sided kidney stones. He was brought to the operating room today for treatment. DESCRIPTION OF PROCEDURE: The patient was brought to the operating room and general anesthesia was induced. Prophylactic antibiotics were infused. He was then placed in the dorsal lithotomy position, prepped and draped in the usual sterile fashion. A rigid cystoscope was inserted into the urethral meatus and advanced into the bladder. Once inside the bladder, a guidewire was advanced up the left collecting system. I then tried to advance a ureteral access sheath up the left collecting system but it would not go as the ureter was too narrow. I then tried to dilate the ureter using [employer] fascial dilators. These did not dilate the ureter very well. I therefore, went back and put the access sheath back in, and only got it up into the distal ureter. I then went up with the flexible ureteroscope and of note I had a difficult time getting the scope all the way into the kidney as the entire length of the ureter was somewhat narrow. Once inside the kidney, I examined it thoroughly. It appeared that almost all the stones were actually imbedded in the wong of the calices. A few stones were seen growing off of one of the infundibula and this was lasered with a 272 micron laser fiber and then this stone was then removed using a basket. Since the remainder of the stones inside the kidney were actually imbedded inside the infundibula I decided not to try to laser them. A retrograde pyelogram was then performed and notable for mild left hydronephrosis with no extravasation. I then withdrew the ureteroscope along with the access sheath and utilized the wire to advance the #7-[id number] x 22-32 cm JJ ureteral stent up to the left collecting system. The wire was removed and there were adequate curls of the stent in the left renal pelvis and in the bladder. The bladder was then emptied of all fluids. This marked the conclusion of the procedure. The patient was taken out of the dorsal lithotomy position, awakened from anesthesia and transported to the recovery room in stable condition. ESTIMATED BLOOD LOSS: 5 mL. COMPLICATIONS: None. SPECIMENS: Kidney stone. PLAN: The patient will followup in the clinic in a few weeks for stent removal. ELENA
[2019-08-21 00:06] LABS: Ca Ox Monohydrate 95 % (.)
== END 2019-08-12 20:30 | disposition home or self-care (01) ==
LOC: M SDC 12:48
PROVIDERS: ATTEND Urology
DX: N20.0 Calculus of kidney (principal); N40.0 Benign prostatic hyperplasia without lower urinary tract symptoms; Z85.51 Personal history of malignant neoplasm of bladder; Z91.040 Latex allergy status; Z79.899 Other long term (current) drug therapy; F17.210 Nicotine dependence, cigarettes, uncomplicated
CPT/HCPCS: 52356; 74420; 82360; 88300; C1894; C2617; J0690; J1100; J2250; J2405; J3010; Q9961

== ENCOUNTER → 2020-01-18 | Outpatient (CLI) | payer MEDICARE, MEDICAID ==
[~2020-01-18] MED LIST changes: -ALFU10TA2 PO; +ALFU10TA3 PO; -LIDOCAINE 1% MDV 20ML VIAL SQ PRN; -LR 1,000 ML IV ONE
--- NOTE | 2020-01-18 15:25 | REPPI ---
Clinical: Pain . Technique: AP, lateral, bilateral oblique views of the left elbow. Findings: No acute fracture or dislocation is appreciated. Joint spaces and surrounding soft tissues appear normal. Lateral view demonstrates normal positioning to the anterior and posterior fat pads without evidence for effusion/hemarthrosis. No subcutaneous emphysema or foreign body identified. Impression: Normal left elbow radiographs. Electronically Signed by Connor Branch MD 01/18/2020 03:16 P
== END ==
LOC: M PLALAB 14:57 → M PLAIMG 14:57
PROVIDERS: ATTEND Nurse Practitioner Adult Health
DX: M25.522 Pain in left elbow (principal)
CPT/HCPCS: 73080; G0463

== ENCOUNTER → 2021-08-02 | Outpatient (CLI) | payer MEDICARE, MEDICAID ==
[~2021-08-02] MED LIST changes: +OMEP40CA4 PO; -OMEP40CA97 PO
[2021-08-02 13:36] LABS: HEMATOCRIT 43.5 % (42.0-52.0); HEMOGLOBIN 14.2 g/dl (13.5-17.5); MEAN CORPUSCULAR HEMOGLOBIN 31.9 pg (27.0-33.0); MEAN CORPUSCULAR HGB CONC 32.6 g/dl (32.0-36.5); MEAN CORPUSCULAR VOLUME 97.8 fl (80.0-96.0); PLATELET COUNT, AUTOMATED 225 10^3/uL (150-450); RED BLOOD COUNT 4.45 10^6/uL (4.30-6.10); WHITE BLOOD COUNT 7.2 10^3/uL (4.0-10.0)
[2021-08-02 14:27] LABS: ALBUMIN 3.6 GM/DL (3.2-5.2); ALT/SGPT 17 U/L (12-78); AMYLASE 80 U/L (25-115); BILIRUBIN,TOTAL 0.9 MG/DL (0.2-1.0); BLOOD UREA NITROGEN 15 MG/DL (7-18); CALCIUM LEVEL 9.2 MG/DL (8.8-10.2); CARBON DIOXIDE LEVEL 32 MEQ/L (21-32); CHLORIDE LEVEL 109 MEQ/L (98-107); CHOLESTEROL LEVEL 175 MG/DL (<200); CHOLESTEROL RISK RATIO 3.888 (<5); CREATININE FOR GFR 0.87 MG/DL (0.70-1.30); FERRITIN 46 NG/ML (26-388); GLOMERULAR FILTRATION RATE > 60.0 (>49); GLUCOSE, FASTING 100 MG/DL (70-100); HDL CHOLESTEROL 45 MG/DL (>40); IRON (FE) 56 UG/DL (65-175); LDL CHOLESTEROL 114 MG/DL (<100); LIPASE 145 U/L (73-393); NON-HDL-C 130 MG/DL; PERCENT SATURATION 19.4 % (19.7-50.0); POTASSIUM SERUM 4.3 MEQ/L (3.5-5.1); SODIUM LEVEL 143 MEQ/L (136-145); TOTAL IRON BINDING CAPACITY 288 UG/DL (250-450); TOTAL PROTEIN 6.6 GM/DL (6.4-8.2); TRIGLYCERIDES LEVEL 81 MG/DL (<150)
[2021-08-02 14:36] LABS: TOTAL 25(OH) VITAMIN D 27.2 NG/ML (30.0-100.0)
[2021-08-02 15:05] LABS: CA19-9 TUMOR MARKER,CARBOHYDRA 47.8 U/ML (<35.0)
== END ==
LOC: M PLALAB 09:05
PROVIDERS: ATTEND Nurse Practitioner Adult Health
DX: D64.9 Anemia, unspecified (principal); E78.00 Pure hypercholesterolemia, unspecified; Z12.5 Encounter for screening for malignant neoplasm of prostate
CPT/HCPCS: 36415; 80053; 80061; 82150; 82306; 82728; 83550; 83690; 85027; 86301; 88108; G0103

== ENCOUNTER 2021-08-17 11:19 | Outpatient (CLI) | payer MEDICARE, MEDICAID ==
[~2021-08-17] VITALS: Ht 180.3 cm; Wt 59.0 kg
[~2021-08-17 11:19] MED LIST changes: +IRON SUCROSE 25 MG in NS 25 ML IV ONE; +IRON SUCROSE 475 MG in NS 250 ML IV ONE
[2021-08-17 11:30] VITALS: BP 150/71
[2021-08-17 13:15] VITALS: BP 125/64
[2021-08-17 14:15] VITALS: BP 118/60
[2021-08-17 15:15] VITALS: BP 117/68
[2021-08-17 16:30] VITALS: BP 135/71
[2021-08-17 17:05] VITALS: BP 156/75
== END 2021-08-17 17:15 | disposition home or self-care (01) ==
LOC: M INFU 11:19
PROVIDERS: ATTEND Nurse Practitioner Adult Health
DX: D50.9 Iron deficiency anemia, unspecified (principal); Z91.040 Latex allergy status

== ENCOUNTER → 2021-08-17 | Outpatient (CLI) | payer MEDICARE, MEDICAID ==
[~2021-08-17] MED LIST changes: +ISOVUE-370 76% 100ML VIAL As Ordered ONE
== END ==
LOC: M RAD 11:25
PROVIDERS: ATTEND Nurse Practitioner Women's Health
DX: D50.9 Iron deficiency anemia, unspecified (principal); Z85.528 Personal history of other malignant neoplasm of kidney; N40.1 Benign prostatic hyperplasia with lower urinary tract symptoms; N20.0 Calculus of kidney; Z12.2 Encounter for screening for malignant neoplasm of respiratory organs; R91.8 Other nonspecific abnormal finding of lung field; J43.9 Emphysema, unspecified; J47.9 Bronchiectasis, uncomplicated
CPT/HCPCS: 71271; 74177; 96365; 96366; J1756; Q9967

== ENCOUNTER → 2021-08-17 | Outpatient (CLI) | payer MEDICARE, MEDICAID ==
[~2021-08-17] MED LIST changes: -ISOVUE-370 76% 100ML VIAL As Ordered ONE
== END ==
LOC: M RAD 11:22
PROVIDERS: ATTEND Nurse Practitioner Adult Health
DX: Z12.2 Encounter for screening for malignant neoplasm of respiratory organs (principal); R91.8 Other nonspecific abnormal finding of lung field

== ENCOUNTER 2022-10-17 12:06 | Emergency (ER) | payer MEDICARE, MEDICAID ==
[~2022-10-17] VITALS: Ht 180.3 cm; Wt 63.2 kg
[~2022-10-17 12:06] MED LIST changes: -IRON SUCROSE 25 MG in NS 25 ML IV ONE; -IRON SUCROSE 475 MG in NS 250 ML IV ONE
[2022-10-17 15:06] LABS: HEMATOCRIT 42.9 % (42.0-52.0); MEAN CORPUSCULAR HEMOGLOBIN 31.7 pg (27.0-33.0); MEAN CORPUSCULAR HGB CONC 32.6 g/dl (32.0-36.5); MEAN CORPUSCULAR VOLUME 97.3 fl (80.0-96.0); PLATELET COUNT, AUTOMATED 257 10^3/uL (150-450); RED BLOOD COUNT 4.41 10^6/uL (4.30-6.10); WHITE BLOOD COUNT 10.9 10^3/uL (4.0-10.0)
[2022-10-17 15:52] LABS: RSV AMPLIFICATION NEGATIVE (NEGATIVE)
[2022-10-17 15:58] LABS: AMPHETAMINES LEVEL URINE NEGATIVE (NEGATIVE); BARBITURATES URINE NEGATIVE (NEGATIVE); BENZODIAZEPINES URINE NEGATIVE (NEGATIVE); CANNABINOIDS URINE POSITIVE (NEGATIVE); COCAINE METABOLITE URINE NEGATIVE (NEGATIVE); METHADONE URINE NEGATIVE (NEGATIVE); OPIATES URINE NEGATIVE (NEGATIVE); PHENCYCLIDINE URINE NEGATIVE (NEGATIVE)
[2022-10-17 16:36] LABS: ACETAMINOPHEN LEVEL < 2.0 UG/ML (10.0-20.0); ALBUMIN 3.9 G/DL (3.2-5.2); ALT/SGPT 20 U/L (7.0-40); BILIRUBIN,DIRECT 0.2 MG/DL (<0.4); BILIRUBIN,TOTAL 0.6 MG/DL (0.3-1.2); BLOOD UREA NITROGEN 17 MG/DL (9-23); CALCIUM LEVEL 10.1 MG/DL (8.3-10.6); CARBON DIOXIDE LEVEL 27 MMOL/L (20-31); CHLORIDE LEVEL 106 MMOL/L (98-107); CREATININE FOR GFR 0.86 MG/DL (0.70-1.30); ETHYL ALCOHOL (ETHANOL) 0.005 % (0.000-0.010); GLOMERULAR FILTRATION RATE > 60.0 (>49); GLUCOSE, FASTING 103 MG/DL (74-106); POTASSIUM SERUM 4.4 MMOL/L (3.5-5.1); SODIUM LEVEL 142 MMOL/L (136-145); THYROID STIMULATING HORMONE 0.759 uIU/ML (0.55-4.78); TOTAL PROTEIN 6.5 G/DL (5.7-8.2)
[2022-10-17 16:40] LABS: SALICYLATE LEVEL < 3.0 MG/DL (<30)
[2022-10-17] MEDS ORDERED: HOME MED LIST COMPLETE! XX SCH (20:30)
[2022-10-18] MEDS ORDERED: NICOTINE 21MG/24HR 1 EA TRANSDERMAL TD ONE (08:05)
[2022-10-19 10:37] VITALS: BP 150/78
== END 2022-10-19 11:10 | disposition home or self-care (01) ==
LOC: M ED 12:06
DX: Z04.6 Encounter for general psychiatric examination, requested by authority (principal); R45.851 Suicidal ideations; I45.10 Unspecified right bundle-branch block; R94.31 Abnormal electrocardiogram [ECG] [EKG]; F32.A Depression, unspecified; E78.89 Other lipoprotein metabolism disorders; F41.9 Anxiety disorder, unspecified; F17.200 Nicotine dependence, unspecified, uncomplicated; Z91.040 Latex allergy status; Z85.528 Personal history of other malignant neoplasm of kidney; Z87.438 Personal history of other diseases of male genital organs; Z86.39 Personal history of other endocrine, nutritional and metabolic disease; Z90.5 Acquired absence of kidney; Z98.890 Other specified postprocedural states; Z83.3 Family history of diabetes mellitus

== ENCOUNTER → 2022-11-18 | Outpatient (CLI) | payer MEDICARE, MEDICAID | LOC: M WUC 09:31 | PROVIDERS: ATTEND Nurse Practitioner Adult Health | DX: J43.9 Emphysema, unspecified (principal); T14.8XXA Other injury of unspecified body region, initial encounter; W19.XXXA Unspecified fall, initial encounter ==

== ENCOUNTER 2023-01-06 12:07 | Inpatient (IN) | payer MEDICARE, MEDICAID ==
[~2023-01-06] VITALS: Ht 177.8 cm; Wt 58.4 kg
[2023-01-06] MEDS ORDERED: ZOLO100T PO (17:10)
[2023-01-06] MEDS ORDERED: MORPHINE 4 MG/ML 1ML VIAL IV ONE (17:30)
[2023-01-06 17:51] LABS: HEMATOCRIT 40.2 % (42.0-52.0); HEMOGLOBIN 13.9 g/dl (13.5-17.5); MEAN CORPUSCULAR HEMOGLOBIN 33.2 pg (27.0-33.0); MEAN CORPUSCULAR HGB CONC 34.6 g/dl (32.0-36.5); MEAN CORPUSCULAR VOLUME 95.9 fl (80.0-96.0); PLATELET COUNT, AUTOMATED 280 10^3/uL (150-450); RED BLOOD COUNT 4.19 10^6/uL (4.30-6.10); WHITE BLOOD COUNT 11.4 10^3/uL (4.0-10.0)
[2023-01-06] MEDS ORDERED: BISACODYL 5MG TAB PO PRN (18:05)
[2023-01-06] MEDS ORDERED: MIRALAX *UNIT DOSE* 17GM PACKET PO PRN (18:05)
[2023-01-06] MEDS ORDERED: SENOKOT S TAB PO PRN (18:05)
[2023-01-06] MEDS ORDERED: ACETAMINOPHEN TAB 650MG DOSE (2X325MG) PO PRN (18:05)
[2023-01-06] MEDS ORDERED: MOM 30ML SUSPENSION UDC PO PRN (18:05)
[2023-01-06 18:16] LABS: BLOOD UREA NITROGEN 18 MG/DL (9-23); CALCIUM LEVEL 9.1 MG/DL (8.3-10.6); CARBON DIOXIDE LEVEL 28 MMOL/L (20-31); CHLORIDE LEVEL 108 MMOL/L (98-107); CREATININE FOR GFR 0.82 MG/DL (0.70-1.30); GLOMERULAR FILTRATION RATE > 60.0 (>49); GLUCOSE, FASTING 94 MG/DL (74-106); POTASSIUM SERUM 4.3 MMOL/L (3.5-5.1); SODIUM LEVEL 142 MMOL/L (136-145)
[2023-01-06 18:27] LABS: RSV AMPLIFICATION NEGATIVE (NEGATIVE)
[2023-01-06] MEDS ORDERED: FINA5TAB2 PO (19:02)
[2023-01-06] MEDS ORDERED: HOME MED LIST COMPLETE! XX SCH (19:05)
[2023-01-06] MEDS ORDERED: ENOXAPARIN 40MG/0.4ML SYRINGE (J1650 PER 10MG) SC ONE (19:15)
[2023-01-06] MEDS ORDERED: IPRATROPIUM 0.5MG/ALBUTEROL 2.5MG INH SOL UD 3ML (DUONEB) NEB PRN (19:25)
[2023-01-06 20:27] VITALS: BP 141/87
[2023-01-06] MEDS: NICOTINE 14 MG/24 HR TRANSDERMAL TD SCH (20:50)
[2023-01-06] MEDS: SERTRALINE 100 MG TAB PO SCH (20:50)
[2023-01-06 20:51] VITALS: BP 144/87
[2023-01-06] MEDS: ENOXAPARIN 40MG/0.4ML SYRINGE (J1650 PER 10MG) SC SCH (20:51)
[2023-01-06] MEDS: PERCOCET 5MG/325MG TAB PO PRN (20:52)
[2023-01-06] MEDS ORDERED: lisinopriL 5 MG TAB PO SCH (21:00)
[2023-01-07] MEDS: MORPHINE 4 MG/ML 1ML VIAL IV PRN ×4 (00:20→23:24)
[2023-01-07] MEDS: PERCOCET 5MG/325MG TAB PO PRN ×2 (04:35→14:41)
[2023-01-07 06:00] VITALS: BP 110/62
[2023-01-07 06:30] LABS: INR 1.06
[2023-01-07] MEDS: FINASTERIDE 5MG TAB PO SCH (08:24)
[2023-01-07] MEDS ORDERED: ENOXAPARIN 40MG/0.4ML SYRINGE (J1650 PER 10MG) SC SCH (09:00)
[2023-01-07 14:00] VITALS: BP 115/62
[2023-01-07] MEDS ORDERED: NS 1,000 ML IV ONE (15:10)
[2023-01-07] MEDS: SERTRALINE 100 MG TAB PO SCH (19:26)
[2023-01-07] MEDS: NICOTINE 14 MG/24 HR TRANSDERMAL TD SCH (19:27)
[2023-01-07 20:50] VITALS: BP 116/62
[2023-01-07] MEDS: ENOXAPARIN 40MG/0.4ML SYRINGE (J1650 PER 10MG) SC SCH (21:00)
[2023-01-08] VITALS (7 sets, daily range): BP systolic 113–119; BP diastolic 59–63
[2023-01-08] MEDS: TEMAZEPAM 7.5 MG CAP PO PRN (00:03)
[2023-01-08] MEDS: PERCOCET 5MG/325MG TAB PO PRN ×3 (01:57→20:16)
[2023-01-08 06:01] LABS: BASO # 0.1 10^3/uL (0.0-0.2); BASO % 0.8 % (0.0-1.0); EOS # 0.2 10^3/uL (0.0-0.5); EOS % 1.6 % (0.0-3.0); HEMATOCRIT 34.5 % (42.0-52.0); LYMPH # 2.2 10^3/uL (1.5-5.0); LYMPH % 20.2 % (24.0-44.0); MEAN CORPUSCULAR HEMOGLOBIN 31.1 pg (27.0-33.0); MEAN CORPUSCULAR HGB CONC 32.8 g/dl (32.0-36.5); MONO # 1.3 10^3/uL (0.0-0.8); MONO % 11.9 % (2.0-8.0); NEUTROPHILS # 7.1 10^3/uL (1.5-8.5); NEUTROPHILS % 65.3 % (36.0-66.0); PLATELET COUNT, AUTOMATED 215 10^3/uL (150-450); RED BLOOD COUNT 3.63 10^6/uL (4.30-6.10); WHITE BLOOD COUNT 10.9 10^3/uL (4.0-10.0)
[2023-01-08 06:26] LABS: HEMOGLOBIN 11.3 g/dl (13.5-17.5)
[2023-01-08 06:31] LABS: BLOOD UREA NITROGEN 15 MG/DL (9-23); CALCIUM LEVEL 8.2 MG/DL (8.3-10.6); CARBON DIOXIDE LEVEL 27 MMOL/L (20-31); CHLORIDE LEVEL 104 MMOL/L (98-107); CREATININE FOR GFR 0.83 MG/DL (0.70-1.30); GLOMERULAR FILTRATION RATE > 60.0 (>49); GLUCOSE, FASTING 105 MG/DL (74-106); SODIUM LEVEL 137 MMOL/L (136-145)
[2023-01-08] MEDS: MORPHINE 4 MG/ML 1ML VIAL IV PRN ×2 (06:46→23:45)
[2023-01-08] MEDS: FINASTERIDE 5MG TAB PO SCH (08:16)
[2023-01-08] MEDS ORDERED: fentaNYL 100 MCG/2 ML INJECTION As Ordered ONE (10:51)
[2023-01-08] MEDS ORDERED: LIDOCAINE 2% 100MG/5ML SDV (FOR ANES.) As Ordered ONE (10:52)
[2023-01-08] MEDS ORDERED: MIDAZOLAM INJ 2MG/2ML VIAL As Ordered ONE (10:52)
[2023-01-08] MEDS ORDERED: propofoL 200 MG/20 ML VIAL As Ordered ONE (10:52)
[2023-01-08] MEDS ORDERED: ONDANSETRON 4MG 2ML VIAL As Ordered ONE (10:53)
[2023-01-08] MEDS ORDERED: fentaNYL 100 MCG/2 ML INJECTION IV PRN ×2 (11:35→13:50)
[2023-01-08] MEDS ORDERED: EPINEPHrine INJ 1 MG/ML 1ML AMP PN ONE (11:35)
[2023-01-08] MEDS ORDERED: ROPIvacaine 0.5% 30ML VIAL PN ONE (11:35)
[2023-01-08] MEDS ORDERED: LIDOCAINE 1% SDV 5ML VIAL PN ONE (11:35)
[2023-01-08] MEDS: MIDAZOLAM INJ 2MG/2ML VIAL IV PRN ×2 (11:46→11:47)
[2023-01-08] MEDS ORDERED: ceFAZolin 2 GM/D5W 50 ML IV BAG As Ordered ONE (12:29)
[2023-01-08] MEDS ORDERED: oxyCODONE 5MG TAB PO PRN (13:50)
[2023-01-08] MEDS ORDERED: LR 1,000 ML IV SCH (13:50)
[2023-01-08] MEDS ORDERED: HYDROMORPHONE HCL 0.5 MG/ 0.5 ML SYRINGE IV PRN (13:50)
[2023-01-08] MEDS ORDERED: ONDANSETRON 4MG 2ML VIAL IV PRN ×2 (13:50)
[2023-01-08] MEDS ORDERED: PERCOCET 5MG/325MG TAB PO PRN (13:50)
[2023-01-08] MEDS: ACETAMINOPHEN TAB 650MG DOSE (2X325MG) PO PRN (15:36)
[2023-01-08] MEDS: NICOTINE 14 MG/24 HR TRANSDERMAL TD SCH (20:14)
[2023-01-08] MEDS: ceFAZolin SOD 2 GM in IV 1 EA IV SCH (20:15)
[2023-01-08] MEDS: SERTRALINE 100 MG TAB PO SCH (20:15)
[2023-01-08] MEDS ORDERED: ASPIRIN 81MG ENTERIC TABLET PO SCH (21:00)
[2023-01-09 00:09] VITALS: BP 119/64
[2023-01-09] MEDS: TEMAZEPAM 7.5 MG CAP PO PRN (00:37)
[2023-01-09] MEDS ORDERED: MORPHINE 2 MG/ML 1ML VIAL IV ONE (02:00)
[2023-01-09 04:15] VITALS: BP 128/70
[2023-01-09] MEDS: ceFAZolin SOD 2 GM in IV 1 EA IV SCH (04:26)
[2023-01-09] MEDS: ACETAMINOPHEN TAB 650MG DOSE (2X325MG) PO PRN (04:27)
[2023-01-09 06:00] VITALS: BP 129/69
[2023-01-09 06:00] LABS: BASO % 0.3 % (0.0-1.0); HEMATOCRIT 32.3 % (42.0-52.0); LYMPH # 1.2 10^3/uL (1.5-5.0); LYMPH % 8.5 % (24.0-44.0); MEAN CORPUSCULAR HEMOGLOBIN 31.7 pg (27.0-33.0); MEAN CORPUSCULAR HGB CONC 34.1 g/dl (32.0-36.5); MEAN CORPUSCULAR VOLUME 93.1 fl (80.0-96.0); NEUTROPHILS # 11.2 10^3/uL (1.5-8.5); NEUTROPHILS % 79.8 % (36.0-66.0); PLATELET COUNT, AUTOMATED 210 10^3/uL (150-450); RED BLOOD COUNT 3.47 10^6/uL (4.30-6.10); WHITE BLOOD COUNT 14.1 10^3/uL (4.0-10.0)
[2023-01-09 06:18] LABS: INR 1.12; PROTHROMBIN TIME 14.6 SECONDS (12.5-14.5)
[2023-01-09 06:24] LABS: MONO # 1.6 10^3/uL (0.0-0.8)
[2023-01-09 06:44] LABS: ALKALINE PHOSPHATASE 69 U/L (46-116); ALT/SGPT 15 U/L (7.0-40); AST/SGOT 24 U/L (<34); BILIRUBIN,TOTAL 0.5 MG/DL (0.3-1.2); BLOOD UREA NITROGEN 17 MG/DL (9-23); CALCIUM LEVEL 8.8 MG/DL (8.3-10.6); CARBON DIOXIDE LEVEL 28 MMOL/L (20-31); CHLORIDE LEVEL 103 MMOL/L (98-107); CREATININE FOR GFR 0.85 MG/DL (0.70-1.30); GLOMERULAR FILTRATION RATE > 60.0 (>49); GLUCOSE, FASTING 144 MG/DL (74-106); POTASSIUM SERUM 3.6 MMOL/L (3.5-5.1); SODIUM LEVEL 137 MMOL/L (136-145); TOTAL PROTEIN 5.4 G/DL (5.7-8.2)
[2023-01-09] MEDS: FINASTERIDE 5MG TAB PO SCH (08:16)
[2023-01-09] MEDS: PERCOCET 5MG/325MG TAB PO PRN (08:17)
[2023-01-09] MEDS ORDERED: KETOROLAC 30 MG/ML 1ML VIAL IV ONE (09:05)
[2023-01-09 10:00] VITALS: BP 130/65
[2023-01-09] MEDS ORDERED: MIRA1POW3 PO (11:01)
[2023-01-09] MEDS ORDERED: IBUP-1022 PO (11:01)
[2023-01-09] MEDS ORDERED: PERCOCET PO ×2 (11:01→12:15)
[2023-01-09] MEDS ORDERED: COLA100C5 PO (11:01)
[2023-01-09] MEDS ORDERED: ACET500P3 PO (11:01)
[2023-01-09] MEDS ORDERED: ASPI81TAEC PO (11:01)
== END 2023-01-09 16:07 | disposition home or self-care (01) | DRG 516 ==
LOC: M ED 12:07 → M ED INP 18:02 → M MSPAV 20:27
PROVIDERS: ADMIT General Practice; ATTEND Internal Medicine Nephrology
PROC: 0QS Lower Bones, Reposition (ICD-10-PCS; principal; 2023-01-08 13:15)
DX: S82.031A Displaced transverse fracture of right patella, initial encounter for closed fracture (principal); K86.2 Cyst of pancreas; J44.9 Chronic obstructive pulmonary disease, unspecified; N18.30 Chronic kidney disease, stage 3 unspecified; F41.9 Anxiety disorder, unspecified; F32.A Depression, unspecified; N40.0 Benign prostatic hyperplasia without lower urinary tract symptoms; E55.9 Vitamin D deficiency, unspecified; F17.200 Nicotine dependence, unspecified, uncomplicated; E78.5 Hyperlipidemia, unspecified; K64.9 Unspecified hemorrhoids; I44.0 Atrioventricular block, first degree; Z87.442 Personal history of urinary calculi; Z86.010 Personal history of colon polyps; W00.0XXA Fall on same level due to ice and snow, initial encounter; Y93.K1 Activity, walking an animal; Y99.8 Other external cause status; Y92.89 Other specified places as the place of occurrence of the external cause; Z79.899 Other long term (current) drug therapy; Z91.040 Latex allergy status

== ENCOUNTER → 2023-01-23 | Outpatient (CLI) | payer MEDICARE, MEDICAID ==
[~2023-01-23] MED LIST changes: +ACET500P3 PO; +ASPI81TAEC PO; +COLA100C5 PO; +IBUP-1022 PO; +MIRA1POW3 PO; +PERCOCET PO; +ZOLO100T PO
== END ==
LOC: M SOG 08:54
PROVIDERS: ATTEND Orthopaedic Surgery
DX: Z47.89 Encounter for other orthopedic aftercare (principal)

== ENCOUNTER 2023-02-09 17:56 | Inpatient (IN) | payer MEDICARE, MEDICAID ==
[~2023-02-09] VITALS: Ht 180.3 cm; Wt 58.6 kg
[2023-02-09 18:39] LABS: BASO # 0.1 10^3/uL (0.0-0.2); EOS % 0.1 % (0.0-3.0); HEMOGLOBIN 13.8 g/dl (13.5-17.5); LYMPH # 1.2 10^3/uL (1.5-5.0); LYMPH % 11.5 % (24.0-44.0); MEAN CORPUSCULAR HEMOGLOBIN 31.2 pg (27.0-33.0); MEAN CORPUSCULAR HGB CONC 32.9 g/dl (32.0-36.5); MONO # 0.7 10^3/uL (0.0-0.8); NEUTROPHILS # 8.4 10^3/uL (1.5-8.5); NEUTROPHILS % 80.1 % (36.0-66.0); PLATELET COUNT, AUTOMATED 223 10^3/uL (150-450); RED BLOOD COUNT 4.42 10^6/uL (4.30-6.10); WHITE BLOOD COUNT 10.5 10^3/uL (4.0-10.0)
[2023-02-09 18:58] LABS: ALBUMIN 3.9 G/DL (3.2-5.2); BILIRUBIN,DIRECT 0.2 MG/DL (<0.4); BILIRUBIN,TOTAL 0.5 MG/DL (0.3-1.2); TOTAL PROTEIN 6.7 G/DL (5.7-8.2)
[2023-02-09] MEDS ORDERED: MORPHINE 2 MG/ML 1ML VIAL IV PRN (19:55)
[2023-02-09] MEDS ORDERED: NS 1,000 ML IV ONE (19:55)
[2023-02-09] MEDS ORDERED: ONDANSETRON 4MG 2ML VIAL IV ONE (19:55)
[2023-02-09] MEDS ORDERED: ISOVUE-300 61% 100ML VIAL As Ordered ONE (21:54)
[2023-02-09] MEDS ORDERED: propofoL 200 MG/20 ML VIAL As Ordered ONE (21:56)
[2023-02-09] MEDS ORDERED: LIDOCAINE 2% 100MG/5ML SDV (FOR ANES.) As Ordered ONE (21:56)
[2023-02-09] MEDS ORDERED: fentaNYL 100 MCG/2 ML INJECTION As Ordered ONE (21:57)
[2023-02-09] MEDS ORDERED: MIDAZOLAM INJ 2MG/2ML VIAL As Ordered ONE (21:57)
[2023-02-09] MEDS ORDERED: MOM 30ML SUSPENSION UDC PO PRN (22:10)
[2023-02-09] MEDS ORDERED: ACETAMINOPHEN TAB 650MG DOSE (2X325MG) PO PRN (22:10)
[2023-02-09] MEDS ORDERED: ceFAZolin 2 GM/D5W 50 ML IV BAG As Ordered ONE (22:23)
[2023-02-09] MEDS ORDERED: ONDANSETRON 4MG 2ML VIAL As Ordered ONE (22:35)
[2023-02-09] MEDS ORDERED: med rec comment (22:38)
[2023-02-09] MEDS ORDERED: HOME MED LIST COMPLETE! XX SCH (22:40)
[2023-02-09] MEDS ORDERED: oxyCODONE 5MG TAB PO PRN (22:45)
[2023-02-09] MEDS ORDERED: fentaNYL 100 MCG/2 ML INJECTION IV PRN (22:45)
[2023-02-09] MEDS ORDERED: NS 1,000 ML IV SCH ×2 (22:45→23:00)
[2023-02-09] MEDS ORDERED: HYDROMORPHONE HCL 0.5 MG/ 0.5 ML SYRINGE IV PRN (22:45)
[2023-02-09] MEDS ORDERED: ONDANSETRON 4MG 2ML VIAL IV PRN (22:45)
[2023-02-09] MEDS ORDERED: ACETAMINOPHEN 1000MG 100ML IV BAG As Ordered ONE (22:56)
[2023-02-09] MEDS ORDERED: cefTRIAXone SOD 1 GM in D5W MINI-BAG PLUS 50 ML IV SCH (23:00)
[2023-02-10] VITALS (8 sets, daily range): BP systolic 121–138; BP diastolic 62–81
[2023-02-10] MEDS ORDERED: HEPARIN SOD (PORCINE) 5000UNITS/ML 1ML VIAL/SYRINGE SC SCH (06:00)
[2023-02-10 07:13] LABS: HEMATOCRIT 39.7 % (42.0-52.0); HEMOGLOBIN 12.8 g/dl (13.5-17.5); MEAN CORPUSCULAR HEMOGLOBIN 30.7 pg (27.0-33.0); MEAN CORPUSCULAR HGB CONC 32.2 g/dl (32.0-36.5); MEAN CORPUSCULAR VOLUME 95.2 fl (80.0-96.0); PLATELET COUNT, AUTOMATED 213 10^3/uL (150-450); RED BLOOD COUNT 4.17 10^6/uL (4.30-6.10); WHITE BLOOD COUNT 8.5 10^3/uL (4.0-10.0)
[2023-02-10 08:05] LABS: ALBUMIN 3.1 G/DL (3.2-5.2); BILIRUBIN,TOTAL 0.3 MG/DL (0.3-1.2); CALCIUM LEVEL 8.5 MG/DL (8.3-10.6); CREATININE FOR GFR 4.13 MG/DL (0.70-1.30); GLOMERULAR FILTRATION RATE 15.5 (>49); POTASSIUM SERUM 4.7 MMOL/L (3.5-5.1); TOTAL PROTEIN 5.5 G/DL (5.7-8.2)
[2023-02-10] MEDS ORDERED: NS 1,000 ML IV SCH (09:45)
== END 2023-02-10 14:15 | disposition left against medical advice (07) | DRG 660 ==
LOC: M ED 17:56 → M SDC 21:30 → ENRESERV 23:53 → M MSPAV 02-10 00:23
PROVIDERS: ADMIT Family Medicine; ATTEND Internal Medicine
PROC: 0TF78ZZ Fragmentation in Left Ureter, Via Natural or Artificial Opening Endoscopic (ICD-10-PCS; 2023-02-09)
PROC: 0T778DZ Dilation of Left Ureter with Intraluminal Device, Via Natural or Artificial Opening Endoscopic (ICD-10-PCS; principal; 2023-02-09 21:41)
DX: N20.1 Calculus of ureter (principal); N17.9 Acute kidney failure, unspecified; J44.9 Chronic obstructive pulmonary disease, unspecified; F41.9 Anxiety disorder, unspecified; F32.A Depression, unspecified; N18.30 Chronic kidney disease, stage 3 unspecified; I44.0 Atrioventricular block, first degree; F17.210 Nicotine dependence, cigarettes, uncomplicated; N40.0 Benign prostatic hyperplasia without lower urinary tract symptoms; S82.001D Unspecified fracture of right patella, subsequent encounter for closed fracture with routine healing; Z79.82 Long term (current) use of aspirin; Z79.899 Other long term (current) drug therapy; Z91.040 Latex allergy status; Z90.5 Acquired absence of kidney

== ENCOUNTER → 2023-02-13 | Outpatient (CLI) | payer MEDICARE, MEDICAID ==
[~2023-02-13] MED LIST changes: +med rec comment
== END ==
LOC: M SOG 10:27
PROVIDERS: ATTEND Orthopaedic Surgery
DX: S82.031D Displaced transverse fracture of right patella, subsequent encounter for closed fracture with routine healing (principal)

== ENCOUNTER → 2023-02-19 | Outpatient (CLI) | payer MEDICARE, MEDICAID ==
[2023-02-19 16:51] LABS: HEMATOCRIT 39.5 % (42.0-52.0); HEMOGLOBIN 12.6 g/dl (13.5-17.5); MEAN CORPUSCULAR HGB CONC 31.9 g/dl (32.0-36.5); MEAN CORPUSCULAR VOLUME 97.3 fl (80.0-96.0); PLATELET COUNT, AUTOMATED 343 10^3/uL (150-450); RED BLOOD COUNT 4.06 10^6/uL (4.30-6.10); WHITE BLOOD COUNT 8.6 10^3/uL (4.0-10.0)
[2023-02-19 17:16] LABS: BLOOD UREA NITROGEN 16 MG/DL (9-23); CALCIUM LEVEL 8.8 MG/DL (8.3-10.6); CARBON DIOXIDE LEVEL 31 MMOL/L (20-31); CHLORIDE LEVEL 104 MMOL/L (98-107); GLOMERULAR FILTRATION RATE > 60.0 (>49); GLUCOSE, FASTING 81 MG/DL (74-106); POTASSIUM SERUM 4.4 MMOL/L (3.5-5.1); SODIUM LEVEL 140 MMOL/L (136-145)
== END ==
LOC: M WUC 13:55
PROVIDERS: ATTEND Urology
DX: N20.0 Calculus of kidney (principal); N17.9 Acute kidney failure, unspecified

== ENCOUNTER → 2023-02-20 | Outpatient (REF) | payer MEDICARE, MEDICAID | LOC: M SMT 17:43 | PROVIDERS: ATTEND Urology | DX: Z01.818 Encounter for other preprocedural examination (principal); N20.0 Calculus of kidney; N39.0 Urinary tract infection, site not specified ==

== ENCOUNTER → 2023-02-24 | Outpatient (CLI) | payer MEDICARE, MEDICAID | LOC: M SOG 08:23 | PROVIDERS: ATTEND Orthopaedic Surgery | DX: S82.031D Displaced transverse fracture of right patella, subsequent encounter for closed fracture with routine healing (principal); W18.30XD Fall on same level, unspecified, subsequent encounter ==

== ENCOUNTER → 2023-03-14 | Outpatient (CLI) | payer MEDICARE, MEDICAID ==
[2023-03-14 19:31] LABS: APPEARANCE, URINE HAZY (CLEAR); BACTERIA, URINE AUTO 1+ (NEGATIVE); BILIRUBIN, URINE AUTO NEGATIVE (NEGATIVE); BLOOD, URINE BLOOD 3+ (NEGATIVE); COLOR, URINE YELLOW (YELLOW); GLUCOSE, URINE (UA) AUTO NEGATIVE (NEGATIVE); KETONE, URINE AUTO NEGATIVE (NEGATIVE); LEUKOCYTE ESTERASE, URINE AUTO 3+ (NEGATIVE); MUCUS, URINE SMALL (NEGATIVE); NITRITE, URINE AUTO NEGATIVE (NEGATIVE); PROTEIN, URINE AUTO 1+ mg/dL (NEGATIVE); RBC, URINE AUTO 141 /HPF (0-3); SPECIFIC GRAVITY URINE AUTO 1.017 (1.002-1.035); SQUAMOUS EPITHELIAL CELL UR AU 0 /HPF (0-6); UROBILINOGEN, URINE AUTO 0.2 mg/dL (0.0-2.0); WBC, URINE AUTO 53 /HPF (0-3)
== END ==
LOC: M WUC 13:42
PROVIDERS: ATTEND Urology
DX: Z01.818 Encounter for other preprocedural examination (principal); N20.0 Calculus of kidney

== ENCOUNTER → 2023-03-18 | Outpatient (CLI) | payer MEDICARE, MEDICAID ==
[2023-03-18 14:32] LABS: BASO # 0.1 10^3/uL (0.0-0.2); BASO % 1.8 % (0.0-1.0); EOS # 0.3 10^3/uL (0.0-0.5); EOS % 3.2 % (0.0-3.0); HEMATOCRIT 43.1 % (42.0-52.0); HEMOGLOBIN 13.7 g/dl (13.5-17.5); LYMPH % 25.4 % (24.0-44.0); MEAN CORPUSCULAR HEMOGLOBIN 30.9 pg (27.0-33.0); MEAN CORPUSCULAR HGB CONC 31.8 g/dl (32.0-36.5); MEAN CORPUSCULAR VOLUME 97.3 fl (80.0-96.0); MONO # 0.9 10^3/uL (0.0-0.8); MONO % 10.9 % (2.0-8.0); NEUTROPHILS # 4.6 10^3/uL (1.5-8.5); NEUTROPHILS % 58.4 % (36.0-66.0); PLATELET COUNT, AUTOMATED 266 10^3/uL (150-450); RED BLOOD COUNT 4.43 10^6/uL (4.30-6.10); WHITE BLOOD COUNT 7.8 10^3/uL (4.0-10.0)
[2023-03-18 14:52] LABS: BLOOD UREA NITROGEN 27 MG/DL (9-23); CALCIUM LEVEL 9.2 MG/DL (8.3-10.6); CARBON DIOXIDE LEVEL 30 MMOL/L (20-31); CHLORIDE LEVEL 107 MMOL/L (98-107); CREATININE FOR GFR 0.92 MG/DL (0.70-1.30); GLOMERULAR FILTRATION RATE > 60.0 (>49); GLUCOSE, FASTING 98 MG/DL (74-106); POTASSIUM SERUM 4.9 MMOL/L (3.5-5.1); SODIUM LEVEL 141 MMOL/L (136-145)
== END ==
LOC: M PLALAB 09:54
PROVIDERS: ATTEND Family Medicine
DX: Z01.810 Encounter for preprocedural cardiovascular examination (principal); N20.0 Calculus of kidney

== ENCOUNTER 2023-03-21 09:36 | Day surgery (SDC) | payer MEDICARE, MEDICAID ==
[~2023-03-21] VITALS: Ht 180.3 cm; Wt 59.9 kg
[~2023-03-21 09:36] MED LIST changes: +ceFAZolin SOD 2 GM in IV 1 EA IV ONE
[2023-03-21] MEDS ORDERED: LR 1,000 ML IV SCH ×2 (10:35→14:10)
[2023-03-21] MEDS ORDERED: FINA5TAB2 PO (11:06)
[2023-03-21] MEDS ORDERED: ONDANSETRON 4MG 2ML VIAL As Ordered ONE (11:42)
[2023-03-21] MEDS ORDERED: propofoL 200 MG/20 ML VIAL As Ordered ONE (11:42)
[2023-03-21] MEDS ORDERED: LIDOCAINE 2% 100MG/5ML SDV (FOR ANES.) As Ordered ONE (11:42)
[2023-03-21] MEDS ORDERED: MIDAZOLAM INJ 2MG/2ML VIAL As Ordered ONE (11:46)
[2023-03-21] MEDS ORDERED: fentaNYL 100 MCG/2 ML INJECTION As Ordered ONE (11:46)
[2023-03-21] MEDS ORDERED: ISOVUE-300 61% 100ML VIAL As Ordered ONE (12:30)
[2023-03-21] MEDS ORDERED: ACETAMINOPHEN 1000MG 100ML IV BAG As Ordered ONE (12:57)
[2023-03-21] MEDS ORDERED: fentaNYL 100 MCG/2 ML INJECTION IV PRN (14:10)
[2023-03-21] MEDS ORDERED: HYDROMORPHONE HCL 0.5 MG/ 0.5 ML SYRINGE IV PRN (14:10)
[2023-03-21] MEDS ORDERED: ONDANSETRON 4MG 2ML VIAL IV PRN (14:10)
[2023-03-21] MEDS ORDERED: oxyCODONE 5MG TAB PO PRN (14:10)
[2023-03-21] MEDS ORDERED: PERCOCET 5MG/325MG TAB PO PRN (14:40)
[2023-03-21 15:40] VITALS: BP 123/63
== END 2023-03-21 15:48 | disposition home or self-care (01) ==
LOC: M SDC 09:36
PROVIDERS: ATTEND Urology
DX: N20.2 Calculus of kidney with calculus of ureter (principal); F41.9 Anxiety disorder, unspecified; F32.A Depression, unspecified; F43.10 Post-traumatic stress disorder, unspecified; F17.210 Nicotine dependence, cigarettes, uncomplicated
CPT/HCPCS: 52356; 74420; 82365; C1769; C1894; C2617; J0131; J0690; J1100; J2250; J2405; J3010; Q9967

== ENCOUNTER → 2023-04-25 | Outpatient (CLI) | payer MEDICARE, MEDICAID ==
[~2023-04-25] MED LIST changes: -ceFAZolin SOD 2 GM in IV 1 EA IV ONE
== END ==
LOC: M SOG 08:19
PROVIDERS: ATTEND Orthopaedic Surgery
DX: S82.031D Displaced transverse fracture of right patella, subsequent encounter for closed fracture with routine healing (principal); W18.30XD Fall on same level, unspecified, subsequent encounter

== ENCOUNTER → 2023-08-01 | Outpatient (CLI) | payer MEDICARE, MEDICAID ==
[2023-08-01 16:36] LABS: HEMATOCRIT 40.5 % (42.0-52.0); HEMOGLOBIN 13.5 g/dl (13.5-17.5); MEAN CORPUSCULAR HEMOGLOBIN 31.9 pg (27.0-33.0); MEAN CORPUSCULAR HGB CONC 33.3 g/dl (32.0-36.5); MEAN CORPUSCULAR VOLUME 95.7 fl (80.0-96.0); PLATELET COUNT, AUTOMATED 237 10^3/uL (150-450); RED BLOOD COUNT 4.23 10^6/uL (4.30-6.10); WHITE BLOOD COUNT 7.5 10^3/uL (4.0-10.0)
[2023-08-01 17:07] LABS: ALBUMIN 3.8 G/DL (3.2-5.2); ALKALINE PHOSPHATASE 63 U/L (46-116); ALT/SGPT 16 U/L (7.0-40); AST/SGOT 17 U/L (<34); BILIRUBIN,TOTAL 0.9 MG/DL (0.3-1.2); BLOOD UREA NITROGEN 13 MG/DL (9-23); CALCIUM LEVEL 9.1 MG/DL (8.3-10.6); CARBON DIOXIDE LEVEL 29 MMOL/L (20-31); CHLORIDE LEVEL 108 MMOL/L (98-107); CREATININE FOR GFR 0.97 MG/DL (0.70-1.30); GLOMERULAR FILTRATION RATE > 60.0 (>49); GLUCOSE, FASTING 109 MG/DL (74-106); POTASSIUM SERUM 4.2 MMOL/L (3.5-5.1); SODIUM LEVEL 144 MMOL/L (136-145); TOTAL PROTEIN 6.3 G/DL (5.7-8.2)
[2023-08-01 17:11] LABS: INR 1.05; PROTHROMBIN TIME 13.4 SECONDS (12.5-14.5)
== END ==
LOC: M WUC 14:27
PROVIDERS: ATTEND Urology
DX: N48.6 Induration penis plastica (principal); Z79.01 Long term (current) use of anticoagulants

== ENCOUNTER → 2023-08-13 | Outpatient (REF) | payer MEDICARE, MEDICAID | LOC: M LABWUC 16:31 | PROVIDERS: ATTEND Urology | DX: N48.6 Induration penis plastica (principal); N39.0 Urinary tract infection, site not specified ==

== ENCOUNTER → 2023-10-01 | Outpatient (CLI) | payer MEDICARE, MEDICAID | LOC: M CARPUL 09:11 | PROVIDERS: ATTEND Internal Medicine Hematology | DX: I11.9 Hypertensive heart disease without heart failure (principal) ==

== ENCOUNTER → 2024-05-11 | Outpatient (CLI) | payer MEDICARE, MEDICAID ==
[~2024-05-11] MED LIST changes: -MIRA1POW3 PO; +MIRA33506 PO
[2024-05-11 14:54] LABS: BASO # 0.1 10^3/uL (0.0-0.2); BASO % 0.7 % (0.0-1.0); EOS # 0.1 10^3/uL (0.0-0.5); EOS % 0.6 % (0.0-3.0); HEMATOCRIT 42.5 % (42.0-52.0); HEMOGLOBIN 13.9 g/dl (13.5-17.5); LYMPH # 1.6 10^3/uL (1.5-5.0); LYMPH % 14.5 % (24.0-44.0); MEAN CORPUSCULAR HEMOGLOBIN 32.5 pg (27.0-33.0); MEAN CORPUSCULAR HGB CONC 32.7 g/dl (32.0-36.5); MEAN CORPUSCULAR VOLUME 99.3 fl (80.0-96.0); MONO # 0.7 10^3/uL (0.0-0.8); MONO % 6.1 % (2.0-8.0); NEUTROPHILS # 8.4 10^3/uL (1.5-8.5); NEUTROPHILS % 77.8 % (36.0-66.0); PLATELET COUNT, AUTOMATED 267 10^3/uL (150-450); RED BLOOD COUNT 4.28 10^6/uL (4.30-6.10); WHITE BLOOD COUNT 10.8 10^3/uL (4.0-10.0)
[2024-05-11 15:06] LABS: FREE T4 0.92 NG/DL (0.89-1.76); THYROID STIMULATING HORMONE 1.063 uIU/ML (0.55-4.78)
[2024-05-11 15:10] LABS: ALBUMIN 3.7 G/DL (3.2-5.2); ALKALINE PHOSPHATASE 73 U/L (46-116); ALT/SGPT 18 U/L (7.0-40); AST/SGOT 19 U/L (<34); BILIRUBIN,TOTAL 0.6 MG/DL (0.3-1.2); BLOOD UREA NITROGEN 16 MG/DL (9-23); CALCIUM LEVEL 9.4 MG/DL (8.3-10.6); CARBON DIOXIDE LEVEL 28 MMOL/L (20-31); CHLORIDE LEVEL 111 MMOL/L (98-107); CREATININE FOR GFR 0.89 MG/DL (0.70-1.30); GLOMERULAR FILTRATION RATE > 60.0 (>49); GLUCOSE, FASTING 93 MG/DL (74-106); POTASSIUM SERUM 4.4 MMOL/L (3.5-5.1); SODIUM LEVEL 143 MMOL/L (136-145); TOTAL PROTEIN 6.7 G/DL (5.7-8.2)
[2024-05-11 15:18] LABS: HEMOGLOBIN A1c 5.3 % (4.0-6.0)
== END ==
LOC: M PLALAB 09:11
PROVIDERS: ATTEND Physician Assistant Medical
DX: R13.10 Dysphagia, unspecified (principal); R05.8 Other specified cough; J40 Bronchitis, not specified as acute or chronic; E11.69 Type 2 diabetes mellitus with other specified complication; E46 Unspecified protein-calorie malnutrition; D50.9 Iron deficiency anemia, unspecified

== ENCOUNTER → 2024-12-16 | Outpatient (CLI) | payer MEDICARE, MEDICAID ==
[~2024-12-16] MED LIST changes: +ALFU10TA23 PO; -ALFU10TA3 PO
== END ==
LOC: M SOG 07:51
PROVIDERS: ATTEND Physician Assistant
DX: M25.522 Pain in left elbow (principal)

== ENCOUNTER → 2025-04-14 | Outpatient (CLI) | payer MEDICARE | LOC: M RAD 07:36 | PROVIDERS: ATTEND Nurse Practitioner Adult Health | DX: Z87.891 Personal history of nicotine dependence (principal) ==

== ENCOUNTER → 2025-10-25 | Outpatient (CLI) | payer MEDICARE, MEDICAID ==
[~2025-10-25] MED LIST changes: -IBUP-1022 PO; +IBUP600T42 PO
== END ==
LOC: M SOG 07:37
PROVIDERS: ATTEND Orthopaedic Surgery
DX: M25.522 Pain in left elbow (principal); M50.30 Other cervical disc degeneration, unspecified cervical region